=== PATIENT | female | born 1985 | race Caucasian/White ===

== ENCOUNTER 2017-09-30 17:14 | Emergency (ER) | payer OTHER ==
--- NOTE | 2017-09-30 17:28 | PDOC ---
Rapid Medical Evaluation Time Seen by Provider: 09/30/17 17:26 Medical Evaluation: Allergies Allergy/AdvReac Type Severity Reaction Status Date / Time No Known Allergies Allergy Verified 09/20/11 08:10 09/30/17 17:26 I have performed a brief in-person evaluation of this patient. The patient presents with a chief complaint of: chest pain since this morning, headache, runny nose but no cough Pertinent physical exam findings: well appearing I have ordered the following: ekg, cxr, labs The patient will proceed to the ED for further evaluation. Discharge Disposition - Diagnosis Chest pain - Referrals - Patient Instructions - Post Discharge Activity
[2017-09-30 17:31] VITALS: BP 131/76; PULSE 86; TEMP 99; BMI 22.1
[2017-09-30 18:03] LABS: BASO % 0.7 % (0-2.0); HEMATOCRIT 39.2 % (32.4-45.2); HEMOGLOBIN 13.2 GM/dL (10.7-15.3); MCH 30.6 pg (25.7-33.7); MCHC 33.7 g/dl (32.0-36.0); MEAN CELL VOLUME 90.8 fl (80-96); MEAN PLT VOLUME 8.5 fl (7.5-11.1); MONO % 13.3 % (3.8-10.2); PLATELET COUNT 192 K/MM3 (134-434); RBC 4.31 M/mm3 (3.60-5.2); RDW 13.4 % (11.6-15.6); WHITE BLOOD COUNT 5.2 K/mm3 (4.0-10.0)
[2017-09-30] MEDS ORDERED: KETOROLAC TROMETHAMINE 30 MG/1 ML VIAL IM ONE (19:05)
[2017-09-30] MEDS ORDERED: KETOROLAC TROMETHAMINE 30 MG/1 ML VIAL ONE (19:06)
--- NOTE | 2017-09-30 19:09 | PDOC ---
History of Present Illness - General Chief Complaint: Cold Symptoms Stated Complaint: CHEST PAIN/ COLD SYMPTOMS Time Seen by Provider: 09/30/17 17:26 History Source: Patient Exam Limitations: No Limitations - History of Present Illness Initial Comments: 09/30/17 19:07 This is a 32-year-old woman without significant past medical history who presents to the emergency room with sudden onset frontal headache and tearing starting this morning. Patient also states she has 3/10 chest pain across both right and left-sided chest. Patient states her headache came on this morning when she awoke has not tried taking any [id number] medication to relieve the pain. She was concerned because of the tearing that was involved with it. Patient with nasal congestion and clear rhinorrhea also. She denies dizziness, sore throat, shortness of breath, cough, abdominal pain, nausea, vomiting. Past History - Past Medical History Allergies/Adverse Reactions: Allergies Allergy/AdvReac Type Severity Reaction Status Date / Time No Known Allergies Allergy Verified 09/30/17 17:26 Home Medications: Ambulatory Orders NK [No Known Home Medication] 09/30/17 COPD: No - Suicide/Smoking/Psychosocial Hx Smoking Status: No Smoking History: Never smoked Have you smoked in the past 12 months: No Number of Cigarettes Smoked Daily: 0 Information on smoking cessation initiated: No Hx Alcohol Use: No Drug/Substance Use Hx: No Substance Use Type: None Review of Systems - Review of Systems Able to Perform ROS?: Yes Is the patient limited Wallisian proficient: No Constitutional: No: Symptoms Reported HEENTM: Yes: See HPI Respiratory: No: Symptoms reported Cardiac (ROS): Yes: See HPI ABD/GI: No: Symptoms Reported : No: Symptoms Reported Musculoskeletal: No: Symptoms Reported Integumentary: No: Symptoms Reported Neurological: Yes: See HPI *Physical Exam - Vital Signs Last Vital Signs Temp Pulse Resp BP Pulse Ox 99 F 86 16 131/76 100 09/30/17 17:26 09/30/17 17:26 09/30/17 17:26 09/30/17 17:26 09/30/17 17:26 - Physical Exam General Appearance: Yes: Appropriately Dressed. No: Apparent Distress HEENT: positive: Pharyngeal Erythema. negative: Tonsillar Exudate, Tonsillar Erythema Neck: positive: Trachea midline, Supple Respiratory/Chest: positive: Lungs Clear, Normal Breath Sounds. negative: Chest Tender, Respiratory Distress, Accessory Muscle Use Cardiovascular: positive: Regular Rhythm, Regular Rate, S1, S2. negative: Edema , Murmur Gastrointestinal/Abdominal: positive: Normal Bowel Sounds. negative: Tender, Soft Musculoskeletal: positive: Normal Inspection. negative: CVA Tenderness Integumentary: positive: Normal Color, Dry, Warm Neurologic: positive: recyclable materials sorter II-XII NML intact, Fully Oriented, Alert, Normal Mood/ Affect, Normal Response, Motor Strength 5/5 Heart Score/ECG Review - History History: Slightly suspicious - Electrocardiogram EKG: Normal - Age Age: </= 45 - Risk Factors Based on the list above the patient has:: No risk factors known - Troponin Troponin: </= normal limit - Score Heart Score - Total: 0 - ECG Intrepretation Rhythm: Regular Rhythm - ECG Impressions Normal ECG: Yes ED Treatment Course - LABORATORY CBC & Chemistry Diagram: 09/30/17 17:51 09/30/17 17:53 - ADDITIONAL ORDERS Additional order review: Laboratory Results 09/30/17 17:51 Urine HCG, Qual Negative 09/30/17 17:51 RBC 4.31 MCV 90.8 MCHC 33.7 RDW 13.4 MPV 8.5 Neutrophils % 59.0 Lymphocytes % 26.0 Monocytes % 13.3 H Eosinophils % 1.0 Basophils % 0.7 Medical Decision Making - Medical Decision Making 09/30/17 19:12 A/P: 32-year-old woman without significant past medical history with frontal headache , rhinorrhea, nasal congestion, bilateral tearing, diffuse chest pain since awaking this morning. TMs pearly martinez with appropriate light reflex. No sinus tenderness elicited. Exam of the oropharynx reveals peritonsillar pillar erythema. Lungs clear to auscultation bilaterally. No respiratory distress. RRR. S1 and S2 present. No murmur, rub or gallop noted. Abdomen soft nontender nondistended. Lower extremities warm well perfused without erythema or cords present. No calf tenderness. Negative Homans sign. Vital signs unremarkable Wells score-3 Labs including troponin and d-dimer, urine test, EKG, chest x-ray Reassess 09/30/17 20:44 Troponin, d-dimer negative. Heart score-0 The patient's headache and chest pain are better after receiving Toradol. Chest pain currently 0/10 headache currently 4/10. I will discharge the patient home with instructions to take Motrin or Excedrin for continued headaches. I discussed the physical exam findings, ancillary test results and final diagnoses with the patient. I answered all of the patient's questions. The patient was satisfied with the care received and felt comfortable with the discharge plan and treatment plan. The patient will call her doctor within 72 hours to arrange follow-up and will return to the Emergency Department with any new, persistent or worsening symptoms. *DC/Admit/Observation/Transfer Diagnosis at time of Disposition: Headache around the eyes Chest pain Qualifiers: Chest pain type: other chest pain Qualified Code(s): R07.89 - Other chest pain ; R07.8 - Other chest pain - Discharge Dispostion Disposition: HOME Condition at time of disposition: Stable Admit: No - Referrals Referrals: Marshall Su MD [Primary Care Provider] - - Patient Instructions Additional Instructions: Take Motrin or Excedrin for headaches. Follow-up with her primary doctor for continued evaluation of your headaches. Return to emergency department for worsening chest pain, shortness of breath, dizziness, blurry vision, headaches not relieved by pain medication, nausea, vomiting or any other concerns. Thank you very much for choosing us to provide your emergent healthcare needs. - Post Discharge Activity
[2017-09-30 19:10] LABS: ALBUMIN 3.8 g/dl (3.4-5.0); ANION GAP 7 (8-16); BLOOD UREA NITROGEN 11 mg/dL (7-18); CALCIUM 8.5 mg/dL (8.5-10.1); CHLORIDE 101 mmol/L (98-107); CO2 28 mmol/L (21-32); CREATININE 0.7 mg/dL (0.55-1.02); GLUCOSE,RANDOM 96 mg/dL (74-106); POTASSIUM 4.1 mmol/L (3.5-5.1); SGOT/AST 18 U/L (15-37); SGPT/ALT 23 U/L (12-78); SODIUM 136 mmol/L (136-145)
[2017-09-30 19:14] LABS: ALK PHOS 55 U/L (45-117); BILIRUBIN,TOTAL 0.2 mg/dL (0.2-1.0); TOT PROT 7.8 g/dl (6.4-8.2)
--- NOTE | 2017-10-01 11:51 | EKG ---
Test Reason : Blood Pressure : / mmHG Vent. Rate : 082 BPM Atrial Rate : 082 BPM P-R Int : 120 ms QRS Dur : 084 ms QT Int : 340 ms P-R-T Axes : 044 -09 031 degrees QTc Int : 397 ms NORMAL SINUS RHYTHM NORMAL ECG NO PREVIOUS ECGS AVAILABLE Confirmed by MORGAN ARCE MD ([id number]) on 10/01/2017 11:50:59 AM Referred By: Confirmed By:MORGAN ARCE MD
== END 2017-09-30 20:56 | disposition home or self-care (01) ==
LOC: JERFT 17:14
PROC: 3E0233Z Introduction of Anti-inflammatory into Muscle, Percutaneous Approach (ICD-10-PCS; principal; 2017-09-30)
DX: R51 Headache (principal)
CPT/HCPCS: 36415; 71046-TC-FY; 80053; 82550; 84484; 84703; 85025; 85379; 93005; 93010; 99282-25

== ENCOUNTER 2019-09-12 16:50 | Emergency (ER) | payer OTHER ==
[2019-09-12 17:10] VITALS: BP 120/74; PULSE 77; TEMP 98.6; BMI 22.3
[2019-09-12] MEDS ORDERED: KETOROLAC TROMETHAMINE 60 MG/2 ML VIAL IM ONE (17:10)
[2019-09-12] MEDS ORDERED: CYCLOBENZAPRINE HCL 10 MG TABLET (FP) PO ONE (17:10)
--- NOTE | 2019-09-12 17:10 | PDOC ---
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 , business machine operator Pt on brief exam: no vertebral tenderness, + left sciatica tenderness pt ordered for: flexeril , toradol Pt to proceed to the ED Discharge Disposition - Diagnosis Back pain Qualifiers: Back pain location: low back pain Chronicity: acute Back pain laterality: left Sciatica presence: with sciatica Sciatica laterality: sciatica of left side Qualified Code(s): M54.42 - Lumbago with sciatica, left side - Discharge Dispostion Disposition: HOME Condition at time of disposition: Stable - Prescriptions Prescriptions: Methocarbamol [Robaxin -] 500 mg PO BID PRN #14 tablet PRN Reason: Back Pain Methylprednisolone [Medrol Dose Stephan] 4 mg PO ASDIR #21 tablet - Referrals Referrals: Ashwin Emery MD, FAANS [Staff Physician] - Jose Mccoy MD [Primary Care Provider] - - Patient Instructions Printed Discharge Instructions: DI for Low Back Pain Additional Instructions: Your symptoms likely caused by muscle pain. Take prescribed medication as prescribed for pain. Apply hot compress to low back 2-3 times a day as needed for pain. Follow-up referred orthopedic control systems specialist if no improvement in 3 days Print Language: SERBIAN - Post Discharge Activity
[2019-09-12] MEDS ORDERED: METHOCARBAMOL 500 MG TABLET PO ONE (17:54)
[2019-09-12] MEDS ORDERED: KETOROLAC TROMETHAMINE 30 MG/1 ML VIAL IM ONE (17:54)
[2019-09-12] MEDS ORDERED: KETOROLAC TROMETHAMINE 30 MG/1 ML VIAL ONE (17:55)
[2019-09-12] MEDS ORDERED: METHOCARBAMOL 500 MG TABLET ONE (17:56)
--- NOTE | 2019-09-12 18:02 | PDOC ---
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 Patient reported pain is worse when she turns in certain position. Denies urinary frequency, dysuria, burning urination, hematuria. Patient report does a lot of prolonged sitting with her job. Patient has not taken anything for symptoms. Denies any other symptoms. Denies any fall or injury to back Occurred: reports: last week Past History - Past Medical History Allergies/Adverse Reactions: Allergies Allergy/AdvReac Type Severity Reaction Status Date / Time No Known Allergies Allergy Verified 09/30/17 17:26 Home Medications: Ambulatory Orders Methocarbamol [Robaxin -] 500 mg PO BID PRN #14 tablet 09/12/19 Methylprednisolone [Medrol Dose Stephan] 4 mg PO ASDIR #21 tablet 09/12/19 COPD: No - Immunization History Immunization Up to Date: No - Psycho Social/Smoking Cessation Hx Smoking Status: No Smoking History: Never smoked Have you smoked in the past 12 months: No Number of Cigarettes Smoked Daily: 0 Information on smoking cessation initiated: No Hx Alcohol Use: No Drug/Substance Use Hx: No Substance Use Type: None Review of Systems - Review of Systems Able to Perform ROS?: Yes Is the patient limited Wolof proficient: No Constitutional: No: Chills, Fever HEENTM: No: Symptoms Reported, See HPI, Eye Pain, Blurred Vision, Tearing, Recent change in vision, Double Vision, Cataracts, Ear Pain, Ocular Prothesis, Ear Discharge, Nose Pain, Nose Congestion, Tinnitus, Nose Bleeding, Hearing Loss , Throat Pain, Throat Swelling, Mouth Pain, Dental Problems, Difficulty Swallowing, Mouth Swelling, Other Respiratory: No: Symptoms reported, See HPI, Cough, Orthopnea, Shortness of Breath, SOB with Exertion, SOB at Rest, Stridor, Wheezing, Productive cough, Hemoptysis, Other Cardiac (ROS): No: Symptoms Reported, See HPI, Chest Pain, Edema, Irregular Heart Rate, Lightheadedness, Palpitations, Syncope, Chest Tightness, Other ABD/GI: No: Symptoms Reported, Nausea, Vomiting, Abdominal cramping : No: Symptoms Reported, Burning, Dysuria, Discharge, Frequency, Flank Pain, Urgency Musculoskeletal: Yes: Symptoms Reported, See HPI, Back Pain (left lower back) Integumentary: Yes: Symptoms Reported Neurological: Yes: Symptoms reported, Numbness, Paresthesia, Tingling ( posterior left thigh) All Other Systems: Reviewed and Negative *Physical Exam - Vital Signs Last Vital Signs Temp Pulse Resp BP Pulse Ox 98.6 F 77 18 120/74 98 09/12/19 17:07 09/12/19 17:07 09/12/19 17:07 09/12/19 17:07 09/12/19 17:07 - Physical Exam 09/12/19 18:02 GENERAL: Well developed, well nourished. Awake and alert in mild acute distress. CARDIOVASCULAR: Regular rate and rhythm. No murmurs, rubs, or gallops. PULMONARY: No evidence of respiratory distress. Lungs clear to auscultation bilaterally. No wheezing, rales or rhonchi. ABDOMINAL: Soft. Non-tender. Non-distended. No rebound or guarding. No organomegaly. Normoactive bowel sounds MUSCULOSKELETAL : Moderate tenderness to left paravertebral muscle of lower lumbosacral spine of L3-S1 on left side. No midline tenderness. No bony deformities .mild increased tenderness to lower back with elevation of left lower extremity to 90 degrees. EXTREMITIES: No cyanosis. No clubbing. No edema. No calf tenderness. SKIN: Warm and dry. Normal capillary refill. No rashes. No jaundice. NEUROLOGICAL: Alert, awake, appropriate. No motor deficits in the lower extremities. Gait is normal without ataxia. PSYCHIATRIC: Cooperative. Good eye contact. Appropriate mood and affect. 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 Patient reported pain is worse when she turns in certain position. Denies urinary frequency, dysuria, burning urination, hematuria. Patient report does a lot of prolonged sitting with her job. Patient has not taken anything for symptoms. Denies any other symptoms. Denies any fall or injury to back. Denies saddle paresthesia, urinary or fecal incontinence. Exam significant for moderate tenderness over left paravertebral muscle of lower lumbar spine of L2-L5 with no midline tenderness. Increased pain with elevation of left lower extremity to 90 degrees. Patient symptoms likely back spasm with sciatica. Toradol 30 mg IM ordered for pain Robaxin 500 mg p.o. ordered for spasm. Patient stable for patient management on Medrol pack taper dose for back pain and Robaxin for spasm and advised to do hot compress and stretching exercise with orthopedic spine follow- up Discharge - Discharge Information Problems reviewed: Yes Clinical Impression/Diagnosis: Back pain Qualifiers: Back pain location: low back pain Chronicity: acute Back pain laterality: left Sciatica presence: with sciatica Sciatica laterality: sciatica of left side Qualified Code(s): M54.42 - Lumbago with sciatica, left side Condition: Stable Disposition: HOME - Admission No - Additional Discharge Information Prescriptions: Methocarbamol [Robaxin -] 500 mg PO BID PRN #14 tablet PRN Reason: Back Pain Methylprednisolone [Medrol Dose Stephan] 4 mg PO ASDIR #21 tablet - Follow up/Referral Referrals: Jose Mccoy MD [Primary Care Provider] - Ashwin Emery MD, FAANS [Staff Physician] - - Patient Discharge Instructions Patient Printed Discharge Instructions: DI for Low Back Pain Additional Instructions: Your symptoms likely caused by muscle pain. Take prescribed medication as prescribed for pain. Apply hot compress to low back 2-3 times a day as needed for pain. Follow-up referred orthopedic service specialist if no improvement in 3 days Print Language: FRISIAN - Post Discharge Activity
== END 2019-09-12 18:14 | disposition home or self-care (01) ==
LOC: JERFT 16:50
PROC: 3E0233Z Introduction of Anti-inflammatory into Muscle, Percutaneous Approach (ICD-10-PCS; principal; 2019-09-12)
DX: M54.42 Lumbago with sciatica, left side (principal)
CPT/HCPCS: 96372; 99281-25